=== PATIENT | male | born 1940 | race Caucasian/White ===

== ENCOUNTER 2017-09-17 19:10 | Emergency (ER) | payer MEDICARE ==
[~2017-09-17] VITALS: Ht 172.7 cm; Wt 72.7 kg
[~2017-09-17 19:10] MED LIST: ALBUTEROL SUL0.083 % IN; AMIODARONE200 MG OR; AMOXICILLIN500 MG PO; AMOXIL500 MG OR; AUGMENTIN875TAB OR; BACTRIM DS1 TAB OR; BACTROBAN2 % EX; BAYER LOW81 MG OR; CETIRIZINE10 MG PO; CHERATUSSIN OR; KEFLEX500 MG OR; LASIX 40 MG TAB40 MG OR; LASIX40 MG OR; POT CHLORIDE20 ME3 OR; PROVENTIL HFA IN; ROBITUSSIN AC OR; ROCEPHIN 1 GM1 GM IM; SIMVASTATIN10 MG PO; SIMVASTATIN40 MG OR; VICODIN ES1 TAB OR
[2017-09-17] MEDS ORDERED: PAXIL40 MG PO (19:39)
[2017-09-17 19:50] VITALS: BP 131/84
[2017-09-17] MEDS ORDERED: METOPROLOL SUCC25 MG PO (19:52)
[2017-09-17] MEDS ORDERED: SIMVASTATIN20 MG PO (19:52)
[2017-09-17] MEDS ORDERED: PAROXETINE HCL40 MG PO (19:52)
== END 2017-09-17 20:00 | disposition home or self-care (01) ==
LOC: ED 19:10
DX: S00.81XA Abrasion of other part of head, initial encounter (principal); H54.8 Legal blindness, as defined in USA; Y04.0XXA Assault by unarmed brawl or fight, initial encounter; Y92.009 Unspecified place in unspecified non-institutional (private) residence as the place of occurrence of the external cause; Z20.6 Contact with and (suspected) exposure to human immunodeficiency virus [HIV]

== ENCOUNTER 2017-09-19 18:21 | Emergency (ER) | payer MEDICARE ==
[~2017-09-19] VITALS: Ht 172.7 cm; Wt 70.0 kg
[~2017-09-19 18:21] MED LIST changes: +METOPROLOL SUCC25 MG PO; +PAROXETINE HCL40 MG PO; +PAXIL40 MG PO; +SIMVASTATIN20 MG PO
[2017-09-19 20:17] VITALS: BP 124/72
[2017-09-19] MEDS ORDERED: ULTRAM50 M1 PO (20:18)
[2017-09-19] MEDS ORDERED: CEPHALEXIN500 MG PO (20:18)
[2017-09-19] MEDS ORDERED: BACTRIM DS1 TAB PO (20:18)
[2017-09-20] MEDS ORDERED: MUPIROCIN21 TOP (10:24)
== END 2017-09-19 20:30 | disposition home or self-care (01) ==
LOC: ED 18:21
PROC: 0HD1XZZ Extraction of Face Skin, External Approach (ICD-10-PCS; principal; 2017-09-19)
DX: S01.81XA Laceration without foreign body of other part of head, initial encounter (principal); L08.9 Local infection of the skin and subcutaneous tissue, unspecified; B96.20 Unspecified Escherichia coli [E. coli] as the cause of diseases classified elsewhere; S32.2XXA Fracture of coccyx, initial encounter for closed fracture; H54.8 Legal blindness, as defined in USA; F32.9 Major depressive disorder, single episode, unspecified; Y04.8XXA Assault by other bodily force, initial encounter

== ENCOUNTER 2017-09-20 09:41 | Emergency (ER) | payer MEDICARE ==
[~2017-09-20] VITALS: Ht 172.7 cm; Wt 60.0 kg
[~2017-09-20 09:41] MED LIST changes: +BACTRIM DS1 TAB PO; +CEPHALEXIN500 MG PO; +ULTRAM50 M1 PO
[2017-09-20 10:21] VITALS: BP 127/80
[2017-09-20] MEDS ORDERED: MUPIROCIN21 TOP (10:24)
[2017-09-21] MEDS ORDERED: OMNICEF300 M1 PO (08:59)
== END 2017-09-20 10:28 | disposition home or self-care (01) ==
LOC: ED 09:41
DX: S01.81XD Laceration without foreign body of other part of head, subsequent encounter (principal); L03.211 Cellulitis of face

== ENCOUNTER 2017-09-21 08:42 | Emergency (ER) | payer MEDICARE ==
[~2017-09-21] VITALS: Ht 172.7 cm; Wt 70.5 kg
[~2017-09-21 08:42] MED LIST changes: +MUPIROCIN21 TOP
[2017-09-21] MEDS ORDERED: OMNICEF300 M1 PO (08:59)
[2017-09-21 09:41] VITALS: BP 118/86
== END 2017-09-21 09:55 | disposition home or self-care (01) ==
LOC: ED 08:42
DX: L03.211 Cellulitis of face (principal); S00.81XD Abrasion of other part of head, subsequent encounter; X58.XXXD Exposure to other specified factors, subsequent encounter; H54.8 Legal blindness, as defined in USA; F32.9 Major depressive disorder, single episode, unspecified

== ENCOUNTER 2017-09-23 10:26 | Emergency (ER) | payer MEDICARE ==
[~2017-09-23] VITALS: Ht 172.7 cm; Wt 70.0 kg
[~2017-09-23 10:26] MED LIST changes: +OMNICEF300 M1 PO
[2017-09-23 10:52] VITALS: BP 154/83
== END 2017-09-23 10:57 | disposition home or self-care (01) ==
LOC: ED 10:26
DX: S00.81XD Abrasion of other part of head, subsequent encounter (principal); F32.9 Major depressive disorder, single episode, unspecified; H54.8 Legal blindness, as defined in USA; Y04.0XXD Assault by unarmed brawl or fight, subsequent encounter

== ENCOUNTER 2018-08-12 08:08 | Observation (INO) | payer MEDICARE ==
[~2018-08-12] VITALS: Ht 172.7 cm; Wt 61.8 kg
--- NOTE | 2018-08-12 08:15 | NUR ---
PT TO ROOM PER W/C
--- NOTE | 2018-08-12 08:16 | NUR ---
[facility] SCALE A 0, STATES DOES NOT FEEL DIZZY AT THIS TIME
--- NOTE | 2018-08-12 08:40 | NUR ---
PATIENT HAS APPROX. 3 CM LACERATION TO BACK OF HEAD, ASSISTED WITH STAPLE PLACEMENT. 4 MELISSA PLACED, PATIENT TOLERATED WELL. PATIENT REPORT UNKNOWN FALL AND UNKNOWN LOC. FAMILY REPORTS PATIENT FOUND ON FLOOR WITH "PUDDLE OF BLOOD" ON GROUND. PATIENT IS ALERT AND ORIENTED X3.
[2018-08-12] MEDS ORDERED: LEVOTHYROXIN75 MCG PO (08:42)
[2018-08-12] MEDS ORDERED: ASPIRIN81 MG PO (08:43)
[2018-08-12 08:48] LABS: HEMATOCRIT 40.6 % (39.0-50.0); HEMOGLOBIN 13.5 g/dl (14.0-18.0); IMMATURE GRANULOCYTES 0.6 % (0.0-5.0); MEAN CORPUSCULAR HGB 29.6 pG CALC (26.0-32.0); MEAN CORPUSCULAR HGB CONC 33.3 g/L CALC (32.0-36.0); NEUT# 5.79 thou/uL (1.82-7.42); RED BLOOD COUNT 4.56 mill/uL (4.70-6.10); RED CELL DISTRI WIDTH 12.5 % (11.5-15.5)
[2018-08-12 09:02] LABS: ALBUMIN 4.6 g/dL (3.2-5.0); ALKALINE PHOSPHATASE 63 u/l (38-126); ANION GAP 15 (6-22 (CALC)); BILIRUBIN, TOTAL 0.6 mg/dL (0.0-1.4); BUN 18 mg/dL (8-23); BUN/CREATININE RATIO 13 (12-20 (CALC)); CARBON DIOXIDE 28 mmol/l (22-30); CHLORIDE 102 mmol/l (95-108); CREATININE 1.3 mg/dL (0.7-1.3); GFR 54 ML/MIN (>=60 (CALC)); GFR FOR AFR.AMER. > 60 ML/MIN (>=60 (CALC)); POTASSIUM 4.6 mmol/l (3.5-5.1); SGOT/AST 36 u/l (19-48); SODIUM 140 mmol/l (137-146); TOTAL PROTEIN 7.5 g/dL (6.3-8.2)
--- NOTE | 2018-08-12 09:05 | NUR ---
PATIENT RETURNS FROM CT SCAN IN STABLE CONDITION.
[2018-08-12 09:14] LABS: MYOGLOBIN 102 ng/mL (0 - 121)
--- NOTE | 2018-08-12 10:00 | NUR ---
PATIENT INFORMED OF WAIT TIME. VERBAL UNDERSTANDING. PATIENT ALERT AND ORIENTED X3, DENIES ANY NEEDS AT THIS TIME. WILL CONTINUE TO MONITOR.
--- NOTE | 2018-08-12 11:05 | NUR ---
NO CHANGE IN PATIENT ASSESSMENT. PATIENT REQUESTING MEAL, VERBAL ORDER RECEIVED FROM .
--- NOTE | 2018-08-12 11:51 | NUR ---
ATTEMPT MADE TO CALL REPORT, SPOKE TO DAMEON. NURSE WILL CALL BACK FOR REPORT.
--- NOTE | 2018-08-12 12:12 | NUR ---
ATTEMPT MADE TO CALL REPORT, SPOKE TO JADYN. REPORTS NURSE IN PATIENT ROOM WILL CALL BACK FOR REPORT.
--- NOTE | 2018-08-12 12:34 | NUR ---
PATIENT INFORMED OF WAIT TIME. VERBAL UNDERSTANDING. FAMILY LEAVING AT THIS TIME BELONGINGS SENT WITH FAMILY.
--- NOTE | 2018-08-12 12:44 | NUR ---
REPORT CALLED TO ROBERT CAMPBELL.
--- NOTE | 2018-08-12 12:55 | NUR ---
PATIENT TO MEDSUR VIA STRETCHER WITH RETIREMENT PLAN SPECIALIST IN PLACE. NURSE AND INTERIOR WIRER INFORMED OF PATIENT'S DECREASED VISION. PATIENT IN STABLE CONDITION. CARE RELINQUISHED.
--- NOTE | 2018-08-12 13:02 | NUR ---
REPORT RECEIVED FROM BRIAN IN ED, PT ARRIVED ON UNIT VIA STRETCHER AND TRANSFERRED TO BED. ALERT AND ORIENTED X 3, C/O MILD PAIN TO HEAD, DRESSING TO HEAD CDI. ORIENTED TO ROOM AND CALL GUILLEN, VITAL SIGNS MEASURED AND RECORDED.
[2018-08-12 13:43] VITALS: BP 122/76
[2018-08-12 15:58] VITALS: BP 114/78
--- NOTE | 2018-08-12 19:20 | NUR ---
REPORT FROM ADRIAN JONES. PT SITTING UP IN BED. PT DENIES ANY PAIN OR DISCOMFORT. DRESSING TO BACK OF HEAD WITH SMALL AMOUNT OF DRAINAGE NOTED. PT ALERT AND ORIENTED. IV SITE APPEARS HEALHTY. DISCUSSED POC. PT VERBALIZED UNDERSTANDING. PT VISUALLY IMPAIRED. SAFETY MEASURES IN PLACE. CALL LIGHT MODIFIED FOR PT TO FEEL AND WITHIN REACH. WILL CONTINUE TO MONITOR.
[2018-08-12 19:22] VITALS: BP 94/56
--- NOTE | 2018-08-12 23:22 | NUR ---
PT RESTING IN BED WITH EYES CLOSED. PT EASILY AROUSED, ALERT AND ORIENTED. PT DENIES ANY PAIN OR DISCOMFORT. CALL LIGHT WITHIN REACH. WILL CONTINUE TO MONITOR.
[2018-08-12 23:38] LABS: URINE BILIRUBIN - DIPSTICK NEGATIVE (NEGATIVE); URINE BLOOD DIPSTICK NEGATIVE (NEGATIVE); URINE COLOR YELLOW; URINE GLUCOSE - DIPSTICK NEGATIVE (NEGATIVE); URINE KETONE NEGATIVE (NEGATIVE); URINE LEUK ESTERASE NEGATIVE (NEGATIVE); URINE NITRITE - DIPSTICK NEGATIVE (Negative); URINE PROTEIN - DIPSTICK NEGATIVE (NEG-TRACE); URINE UROBILINOGEN - DIPSTICK 0.2 E.U./dL (0.2)
[2018-08-12 23:44] VITALS: BP 111/57
[2018-08-13] VITALS (7 sets, daily range): BP systolic 92–125; BP diastolic 37–68
--- NOTE | 2018-08-13 04:41 | NUR ---
PT ALERT AND ORIENTED. DRESSING CHANGED AT THIS TIME. SCANT AMOUNT OF DRIED BLOODY DRAINAGE NOTED. [address] PT DENIES ANY PAIN OR DISCOMFORT AT THIS TIME. CALL LIGHT WITHIN REACH. WILL CONTINUE TO MONITOR.
--- NOTE | 2018-08-13 05:06 | NUR ---
NOTIFIED WHIZZER PHYSICIAN OF RHYTHM CHANGE AND EKG RESULTS. NO NEW ORDERS RECIEVED AT THIS TIME.
[2018-08-13 06:15] LABS: HEMATOCRIT 38.5 % (39.0-50.0); IMMATURE GRANULOCYTES 0.5 % (0.0-5.0); MEAN CELL VOLUME 89.3 fL CALC (80.0-100.0); MEAN CORPUSCULAR HGB 30.2 pG CALC (26.0-32.0); MEAN CORPUSCULAR HGB CONC 33.8 g/L CALC (32.0-36.0); NEUT# 6.33 thou/uL (1.82-7.42); RED BLOOD COUNT 4.31 mill/uL (4.70-6.10); RED CELL DISTRI WIDTH 12.5 % (11.5-15.5)
[2018-08-13 06:39] LABS: ANION GAP 14 (6-22 (CALC)); BUN 16 mg/dL (8-23); BUN/CREATININE RATIO 13 (12-20 (CALC)); CALCULATED LDLCHOLESTEROL 86 mg/dL (62-129 (CALC)); CARBON DIOXIDE 27 mmol/l (22-30); CHLORIDE 103 mmol/l (95-108); CHOLESTEROL HDL RATIO 3.7 (<4.4 (CALC)); CREATININE 1.2 mg/dL (0.7-1.3); GFR 59 ML/MIN (>=60 (CALC)); GFR FOR AFR.AMER. > 60 ML/MIN (>=60 (CALC)); HDL CHOLESTEROL 40 mg/dL (>=40); MAGNESIUM 1.9 mg/dL (1.6-2.3); POTASSIUM 4.2 mmol/l (3.5-5.1); SODIUM 140 mmol/l (137-146); TOTAL CHOLESTEROL 148 mg/dl (0-199); TOTAL TRIGLYCERIDES 113 mg/dl (30-149); VLDL CHOLESTROL 23 mg/dl (0-38 (CALC))
--- NOTE | 2018-08-13 07:00 | NUR ---
RECEIVED PT IN LOW FOWLERS POSITION, EYES CLOSED. EASILY AROUSABLE. REPORT RECEIVED. PT DENIES ANY NEEDS AT THIS TIME. CALL LIGHT IN REACH.
--- NOTE | 2018-08-13 08:00 | NUR ---
ASSESSMENT COMPLETE. SET UP WITH BREAKFAST TRAY. ALERT AND ORIENTED X3. NO SIGNS OF DISTRESS. DRESSING IN PLACE TO HEAD. REPORTS "SORENESS, NOT PAINFUL" TEMP 100.5. SEE SHIFT REVIEW FOR COMPLETE ASSESSMENT. DENIES ANY NEEDS. PLAN OF CARE DISCUSSED. TYLENOL GIVEN.
--- NOTE | 2018-08-13 10:04 | NUR ---
TEMP DOWN TO 98.3. RESTING ON LEFT SIDE. EASILY AROUSABLE. DENIES ANY NEEDS.
--- NOTE | 2018-08-13 11:24 | NUR ---
ORTHOSTATIC B/Ps COMPLETE. PT ASSISTED TO CHAIR. PT SL UNSTEADY GAIT.
--- NOTE | 2018-08-13 15:09 | NUR ---
DISCHARGE INSTRUCTIONS DISCUSSED WITH PATIENT AND PATIENTS NIECE (POA). DISCUSSED FOLLOW UP WITH PRIMARY DR AND EQUAL OPPORTUNITY COUNSELOR THIS WEEK. REVIEWED MEDS GIVEN AND MEDS TO BE CONTINUED. DISCUSSED MELISSA TO BE TAKEN OUT THIS COMING OR TUESDAY AND DISCUSSED SIGNS OF INFECTION. DENIES ANY QUESTIONS. DISCHARGED IN STABLE CONDITION WITH ALL BELONGINGS.
== END 2018-08-13 14:45 | disposition home or self-care (01) ==
LOC: ED 08:08 → ED-I 10:55 → ED 11:33 → MS2 11:34
PROVIDERS: Emergency Medicine; Nurse Practitioner Family; ADMIT Internal Medicine Nephrology; ATTEND Internal Medicine Nephrology
PROC: 0HQ0XZZ Repair Scalp Skin, External Approach (ICD-10-PCS; principal; 2018-08-12)
DX: R55 Syncope and collapse (principal); S01.01XA Laceration without foreign body of scalp, initial encounter; H54.8 Legal blindness, as defined in USA; E03.9 Hypothyroidism, unspecified; F32.9 Major depressive disorder, single episode, unspecified; N18.3 Chronic kidney disease, stage 3 (moderate); E78.5 Hyperlipidemia, unspecified; R00.1 Bradycardia, unspecified; W19.XXXA Unspecified fall, initial encounter; Y92.009 Unspecified place in unspecified non-institutional (private) residence as the place of occurrence of the external cause; Z95.3 Presence of xenogenic heart valve
CPT/HCPCS: G0378

== ENCOUNTER → 2018-08-21 | Outpatient (REF) | payer MEDICARE ==
[~2018-08-21] MED LIST changes: +ASPIRIN81 MG PO; +LEVOTHYROXIN75 MCG PO
== END | disposition home or self-care (01) ==
LOC: MRI 08-18 08:00
PROVIDERS: ATTEND Physician Assistant
DX: S06.0X9A Concussion with loss of consciousness of unspecified duration, initial encounter (principal)

== ENCOUNTER 2020-07-15 16:57 | Emergency (ER) | payer MEDICARE ==
[~2020-07-15] VITALS: Ht 172.7 cm; Wt 75.0 kg
[2020-07-15] MEDS ORDERED: KEFLEX500 MG PO (21:03)
[2020-07-15] MEDS ORDERED: HYDROCO/APAP1 TA9 PO (21:03)
[2020-07-15 21:05] VITALS: BP 145/78
== END 2020-07-15 21:05 | disposition home or self-care (01) ==
LOC: ED 16:57
DX: K02.9 Dental caries, unspecified (principal); K04.7 Periapical abscess without sinus; H54.8 Legal blindness, as defined in USA; F32.9 Major depressive disorder, single episode, unspecified; E05.90 Thyrotoxicosis, unspecified without thyrotoxic crisis or storm; Z95.2 Presence of prosthetic heart valve; Z86.73 Personal history of transient ischemic attack (TIA), and cerebral infarction without residual deficits

== ENCOUNTER 2021-05-15 12:18 | Observation (INO) | payer MEDICARE ==
[~2021-05-15] VITALS: Ht 172.7 cm; Wt 69.0 kg
[~2021-05-15 12:18] MED LIST changes: +HYDROCO/APAP1 TA9 PO; +KEFLEX500 MG PO
--- NOTE | 2021-05-15 12:18 | NUR ---
PATIENT TO ROOM VIA EMS STRETCHER.
--- NOTE | 2021-05-15 13:00 | NUR ---
AMADOU TX COMPLETE AND PT RECEIVED SOLU MEDROL. PT WITH CALL LIGHT IN REACH AND EDUCATED ON USE. PT DENIES ANY NEEDS AT THIS TIME.
[2021-05-15 13:46] LABS: HEMOGLOBIN 12.3 g/dl (14.0-18.0); IMMATURE GRANULOCYTES 0.2 % (0.0-5.0); MEAN CELL VOLUME 89.2 fL CALC (80.0-100.0); MEAN CORPUSCULAR HGB 29.6 pG CALC (26.0-32.0); MEAN CORPUSCULAR HGB CONC 33.2 g/dL CAL (32.0-36.0); NEUT# 10.66 thou/uL (1.82-7.42); RED BLOOD COUNT 4.15 mill/uL (4.70-6.10); RED CELL DISTRI WIDTH 12.9 % (11.5-15.5)
[2021-05-15 13:58] LABS: ALBUMIN 4.2 g/dL (3.2-5.0); ALKALINE PHOSPHATASE 65 u/l (38-126); BILIRUBIN, TOTAL 0.6 mg/dL (0.0-1.4); BUN 20 mg/dL (8-23); BUN/CREATININE RATIO 17 (12-20 (CALC)); CARBON DIOXIDE 28 mmol/l (22-30); CHLORIDE 105 mmol/l (95-108); CREATININE 1.2 mg/dL (0.7-1.3); GFR 58 ML/MIN (>=60 (CALC)); GFR FOR AFR.AMER. > 60 ML/MIN (>=60 (CALC)); SGOT/AST 38 u/l (19-48); SODIUM 140 mmol/l (137-146); TOTAL PROTEIN 7.3 g/dL (6.3-8.2)
[2021-05-15 14:00] LABS: INTERNATIONAL NORMALIZED RATIO 1.8 RATIO (0.7-1.3); PROTHROMBIN TIME 18.5 SECONDS (9.0-12.5)
--- NOTE | 2021-05-15 14:00 | NUR ---
PT WITH CALL LIGHT IN REACH, DENIES NEEDS.
[2021-05-15 14:09] LABS: ANION GAP 12 (6-22 (CALC)); POTASSIUM 5.2 mmol/l (3.5-5.1)
--- NOTE | 2021-05-15 15:18 | NUR ---
DR IN TO SEE PT AND DISCUSS RESULTS AND POC
--- NOTE | 2021-05-15 15:55 | NUR ---
SB[facility] REPORT CALLED TO ROBERT OLIVAREZ MED/SURG
--- NOTE | 2021-05-15 15:57 | NUR ---
REPORT RECEIVED FROM ROBERT PEDERSEN
--- NOTE | 2021-05-15 16:04 | NUR ---
PT TO MED/SURG VIA WHEELCHAIR IN STABLE CONDITION. ALL BELONGINGS AND PAPERWORK SENT WITH ROBERT GONSALVES MED/SURG
[2021-05-15 16:05] VITALS: BP 114/76
--- NOTE | 2021-05-15 16:05 | NUR ---
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 SKIN APPEARS OTHERWISE INTACT;#20G TO LAC FLUSHED AND PATENT,SITE APPEARS HEALTHY;TELE MONITORING IN PLACE;SEIZURE PRECAUTIONS TO BE PLACED R/T SEIZURE HX;FALL AND ALLERGY BAND APPLIED TO RIGHT ARM;PT DENIES ANY ADDITIONAL NEEDS AND IS ENCOURAGED TO CALL FOR ASSISTANCE IF NEEDED;FALL PRECAUTIONS IN PLACE WITH BED IN THE LOWEST POSITION AND CALL LIGHT IN REACH;WILL CONTINUE TO MONITOR
--- NOTE | 2021-05-15 16:34 | NUR ---
NOTIFIED OF EKG READING AFIB. PT DENIES ANY HX OF AFIB. PT ALSO REQUESTS PRN COUGH MEDICATION AND MD AWARE;NO NEW ORDERS RECEIVED AT THIS TIME;WILL CONTINUE TO MONITOR
--- NOTE | 2021-05-15 17:15 | NUR ---
PT RESTING IN SEMI FOWLERS POSITION;PT DENIES ANY CURRENT PAIN OR DISCOMFORTS;RESPIRATIONS EVEN AND UNLABORED ON O2 @ 2L VIA NC;PT MEDICATED WITH PRN ROBITUSSIN 200MG PO PER REQUEST;TELE MONITORING IN PLACE;IV SITE PATENT;PT ENCOURAGED TO CALL FOR ASSISTANCE IF NEEDED;CALL LIGHT IN REACH;WILL CONTINUE TO MONITOR
[2021-05-15 19:00] VITALS: BP 113/71
--- NOTE | 2021-05-15 20:40 | NUR ---
PT RESTING IN BED WITH EYES CLOSED, EASILY AROUSED TO VERBAL STIMULI PT LEGALLY BLIND, NO SIGNS OF DISTRESS NOTED, RESP EVEN AND UNLABORED. PT ALERT AND ORIENTED X3, DISCUSSED POC, PT VOICES NO NEEDS OR COMPLAINTS AT THIS TIME. ASSESSMENT COMPLETED, CALL LIGHT IN REACH,CONTINUE TO MONITOR.
--- NOTE | 2021-05-16 00:20 | NUR ---
PT RESTING IN BED, WITH EYES CLOSED, EASILY AROUSED TO VERBAL STIMULI, REPAIR WELDER AT BEDSIDE, VITALS OBTAINED, PT VOICES NO NEEDS OR COMPLAINTS AT THIS TIME. CALL LIGHT IN REACH,CONTINUE TO MONITOR.
[2021-05-16 00:23] VITALS: BP 97/60
[2021-05-16 04:30] VITALS: BP 111/67
[2021-05-16 05:22] LABS: HEMATOCRIT 33.9 % (39.0-50.0); HEMOGLOBIN 11.5 g/dl (14.0-18.0); MEAN CELL VOLUME 89.2 fL CALC (80.0-100.0); MEAN CORPUSCULAR HGB 30.3 pG CALC (26.0-32.0); MEAN CORPUSCULAR HGB CONC 33.9 g/dL CAL (32.0-36.0); RED BLOOD COUNT 3.8 mill/uL (4.70-6.10); RED CELL DISTRI WIDTH 13.1 % (11.5-15.5)
--- NOTE | 2021-05-16 05:39 | NUR ---
PT SITTING IN RECLINER, MEDICATED PER MAR. NO SIGNS OF DISTRESS NOTED, RESP EVEN AND UNLABORED. CALL LIGHT IN REACH,CONTINUE TO MONITOR.
[2021-05-16 05:45] LABS: INTERNATIONAL NORMALIZED RATIO 1.7 RATIO (0.7-1.3); PROTHROMBIN TIME 17.2 SECONDS (9.0-12.5)
[2021-05-16 06:44] LABS: ANION GAP 16 (6-22 (CALC)); BUN 24 mg/dL (8-23); BUN/CREATININE RATIO 21 (12-20 (CALC)); CARBON DIOXIDE 26 mmol/l (22-30); CHLORIDE 103 mmol/l (95-108); CREATININE 1.1 mg/dL (0.7-1.3); GFR > 60 ML/MIN (>=60 (CALC)); GFR FOR AFR.AMER. > 60 ML/MIN (>=60 (CALC)); MAGNESIUM 1.9 mg/dL (1.6-2.3); POTASSIUM 4.8 mmol/l (3.5-5.1); SODIUM 140 mmol/l (137-146)
--- NOTE | 2021-05-16 07:05 | NUR ---
REPORT RECEIVED FROM OSIRIS SALAMANCA.
--- NOTE | 2021-05-16 07:57 | NUR ---
PT REFUSED AEROSOLIZED BRONCHODIALTR THERAPY AT THIS TIME PER "EATING MY SAUSAGE AND BISCUIT". STATES HE FEELS GREAT, BREATHING IS GREAT. PT ON RA, NAD. VSS IN CHAIR AT BEDSIDE, BY WINDOW. AIRPLANE WOODWORKER TO MONITOR.
[2021-05-16 08:10] VITALS: BP 130/82
--- NOTE | 2021-05-16 08:10 | NUR ---
PT OOB RESTING IN RECLINER,A&O X3;PT NOTED TO BE LEGALLY BLIND;VS OBTAINED AND ASSESSMENT COMPLETED;PT DENIES ANY CURRENT PAIN OR DISCOMFORTS,PAIN SCALE AND REPORTING EDUCATED;RESPIRATIONS EVEN AND UNLABORED ON RA,CLEAR/DIMINISHED LUNG SOUNDS NOTED WITH NON-PRODUCTIVE COUGH;ABDOMEN SOFT ON PALPATION AND ACTIVE IN ALL 4 QUADRANTS;WEAK PEDAL PULSES;SKIN INTACT;TELE MONITORING IN PLACE;#20G TO LAC FLUSHED AND PATENT,SITE APPEARS HEALTHY;PT DENIES ANY ADDITIONAL NEEDS AND IS ENCOURAGED TO CALL FOR ASSISTANCE IF NEEDED;FALL PRECAUTIONS IN PLACE WITH CALL LIGHT IN REACH;WILL CONTINUE TO MONITOR
[2021-05-16 08:14] VITALS: BP 130/82
--- NOTE | 2021-05-16 10:01 | NUR ---
AT BEDSIDE DISCUSSING POC INCLUDING PLANS TO D/C HOME.
[2021-05-16] MEDS ORDERED: MEDDOSEPAK PO (10:24)
[2021-05-16] MEDS ORDERED: TESSALON PERLE100 MG PO (10:27)
[2021-05-16] MEDS ORDERED: VENTOLIN HFA108 MCG INHW/SPAC (10:28)
--- NOTE | 2021-05-16 11:55 | NUR ---
PT OOB RESTING IN RECLINER;RESPIRATIONS EVEN AND UNLABORED ON RA;PT DENIES ANY CURRENT PAIN OR DISCOMFORTS;TELE MONITORING IN PLACE;IV SITE PATENT;PT EDUCATED ON PLANS TO D/C HOME THIS AFTERNOON AND VERBALIZES UNDERSTANDING;PT ENCOURAGED TO CALL FOR ASSISTANCE IF NEEDED;FALL PRECAUTIONS REMAIN IN PLACE WITH CALL LIGHT IN REACH;WILL CONTINUE TO MONITOR
--- NOTE | 2021-05-16 12:40 | NUR ---
ALL DISCHARGE INSTRUCTIONS PROVIDED AT THIS TIME;PT INSTRUCTED TO F/U WITH PCP IN 1 WEEK, CONTINUE ROUTINE HOME MEDICATIONS AND TAKE MEDROL DOSEPAK, TESSALON PERLES, AND INHALER DIRECTED;PT VERBALIZES UNDERSTANDING AND DENIES ANY ADDITIONAL QUESTIONS OR NEEDS;IV SITE REMOVED WITH CATHETER INTACT AND TELE MONITORING D/C;WC TO BE PROVIDED FOR D/C HOME;FAMILY TO TRANSPORT PT HOME;CALL LIGHT IN REACH;WILL CONTINUE TO MONITOR
--- NOTE | 2021-05-16 12:52 | NUR ---
Discharge instructions given. Patient verbalizes understanding of same. Discharged in stable condition via Ambulatory to Home with family. All belongings sent with pt. PT AMBULATED TO LOBBY WITH A STEADY GAIT ACCOMPANIED BY WRITTER.PT REFUSED WC;ALL BELONGINGS LEFT WITH PT. FAMILY TO TRANSPORT PT HOME.
== END 2021-05-16 12:53 | disposition home or self-care (01) ==
LOC: ED 12:18 → ED-I 15:15 → ED 15:33 → MS2 15:34
PROVIDERS: ADMIT Hospitalist; ATTEND Hospitalist
DX: J20.9 Acute bronchitis, unspecified (principal); I48.91 Unspecified atrial fibrillation; E78.00 Pure hypercholesterolemia, unspecified; E03.9 Hypothyroidism, unspecified; H54.8 Legal blindness, as defined in USA; F32.A Depression, unspecified; Z95.3 Presence of xenogenic heart valve; Z20.822 Contact with and (suspected) exposure to COVID-19

== ENCOUNTER 2021-08-20 08:47 | Emergency (ER) | payer MEDICARE ==
[2021-08-20] VITALS (8 sets, daily range): BP systolic 114–145; BP diastolic 59–81
[~2021-08-20] VITALS: Ht 172.7 cm; Wt 68.0 kg
[~2021-08-20 08:47] MED LIST changes: +MEDDOSEPAK PO; +TESSALON PERLE100 MG PO; +VENTOLIN HFA108 MCG INHW/SPAC
[2021-08-20] MEDS ORDERED: LIPITOR80 M1 PO (09:55)
[2021-08-20 10:14] LABS: HEMOGLOBIN 11.6 g/dl (14.0-18.0); IMMATURE GRANULOCYTES 0.4 % (0.0-5.0); MEAN CELL VOLUME 90.5 fL CALC (80.0-100.0); MEAN CORPUSCULAR HGB 29.1 pG CALC (26.0-32.0); MEAN CORPUSCULAR HGB CONC 32.2 g/dL CAL (32.0-36.0); NEUT# 10.07 thou/uL (1.82-7.42); RED BLOOD COUNT 3.98 mill/uL (4.70-6.10); RED CELL DISTRI WIDTH 13.3 % (11.5-15.5)
[2021-08-20 10:21] LABS: ALBUMIN 4.2 g/dL (3.2-5.0); ALKALINE PHOSPHATASE 56 u/l (38-126); ANION GAP 11 (6-22 (CALC)); BILIRUBIN, TOTAL 0.4 mg/dL (0.0-1.4); BUN 17 mg/dL (8-23); BUN/CREATININE RATIO 15 (12-20 (CALC)); CARBON DIOXIDE 30 mmol/l (22-30); CHLORIDE 103 mmol/l (95-108); CREATININE 1.1 mg/dL (0.7-1.3); GFR > 60 ML/MIN (>=60 (CALC)); GFR FOR AFR.AMER. > 60 ML/MIN (>=60 (CALC)); INTERNATIONAL NORMALIZED RATIO 1.6 RATIO (0.7-1.3); POTASSIUM 4.8 mmol/l (3.5-5.1); PROTHROMBIN TIME 16.1 SECONDS (9.0-12.5); SGOT/AST 33 u/l (19-48); SODIUM 139 mmol/l (137-146); TOTAL PROTEIN 7.1 g/dL (6.3-8.2)
== END 2021-08-20 12:12 | disposition short-term general hospital (02) ==
LOC: ED 08:47
PROVIDERS: Family Medicine
PROC: 0HQ0XZZ Repair Scalp Skin, External Approach (ICD-10-PCS; principal; 2021-08-20)
DX: S06.5X0A Traumatic subdural hemorrhage without loss of consciousness, initial encounter (principal); S01.01XA Laceration without foreign body of scalp, initial encounter; G40.909 Epilepsy, unspecified, not intractable, without status epilepticus; H54.8 Legal blindness, as defined in USA; F32.A Depression, unspecified; E78.00 Pure hypercholesterolemia, unspecified; E03.9 Hypothyroidism, unspecified; W18.30XA Fall on same level, unspecified, initial encounter; Y92.009 Unspecified place in unspecified non-institutional (private) residence as the place of occurrence of the external cause; Z79.01 Long term (current) use of anticoagulants; Z86.73 Personal history of transient ischemic attack (TIA), and cerebral infarction without residual deficits; Z95.2 Presence of prosthetic heart valve; Z20.822 Contact with and (suspected) exposure to COVID-19
CPT/HCPCS: J1953